=== PATIENT | female | born 1960 | race Caucasian/White ===

== ENCOUNTER → 2017-04-01 | Outpatient (CLI) | payer BC ==
[~2017-04-01] MED LIST: CARAFATE 1GM1 G PO; CIPRO 500MG TA500 MG PO; FOLIC ACID 11 MG/TA1 PO; METHOTREXATE50/2 SQ; MULTIPLE VITAMI1 CAP PO; NORCO 325 MG-51 TAB PO; PHENERGAN 25 TA25 MG PO; PREDNISONE 5MG5 MG PO; PROMETHAZINE12.5 M5 PO; PROTONIX 40MG T40 MG PO; TRIAMCINOLONE0.11 TP
== END ==
LOC: MC.RAD 10:31
DX: Z12.31 Encounter for screening mammogram for malignant neoplasm of breast (principal); N64.89 Other specified disorders of breast

== ENCOUNTER 2017-04-04 11:00 | Outpatient (RCR) | payer BC ==
[2017-04-03] VITALS (14 sets, daily range): BP systolic 106–118; BP diastolic 42–69; PULSE 69–85; TEMP 97.5–98.2
[2017-04-04] VITALS (14 sets, daily range): BP systolic 114–139; BP diastolic 48–92; PULSE 66–95; TEMP 97.8–98.2
[~2017-04-04] VITALS: Ht 157.5 cm; Wt 59.0 kg
== END 2017-04-04 17:11 ==
LOC: EUO 11:00
DX: M33.90 Dermatopolymyositis, unspecified, organ involvement unspecified (principal); Z79.899 Other long term (current) drug therapy
CPT/HCPCS: J1459

== ENCOUNTER 2017-05-30 09:30 | Outpatient (RCR) | payer BC ==
[2017-05-01] VITALS (13 sets, daily range): BP systolic 100–133; BP diastolic 50–72; PULSE 81–99; TEMP 97.5–98.5
[2017-05-02] VITALS (14 sets, daily range): BP systolic 98–128; BP diastolic 48–93; PULSE 84–108; TEMP 98.3–99.5
[2017-05-29] VITALS (14 sets, daily range): BP systolic 102–131; BP diastolic 46–94; PULSE 86–100; TEMP 98–98.3
[2017-05-30] VITALS (11 sets, daily range): BP systolic 105–127; BP diastolic 49–83; PULSE 84–99; TEMP 97.8–98.5
[~2017-05-30] VITALS: Ht 157.5 cm; Wt 67.7 kg
== END 2017-05-30 15:28 | disposition home or self-care (01) ==
LOC: EUO 09:30
DX: M33.90 Dermatopolymyositis, unspecified, organ involvement unspecified (principal); Z79.899 Other long term (current) drug therapy
CPT/HCPCS: J1459; J1569

== ENCOUNTER → 2017-07-30 | Outpatient (CLI) | payer BC | LOC: COL.PUL 12:43 | DX: M33.90 Dermatopolymyositis, unspecified, organ involvement unspecified (principal); R06.00 Dyspnea, unspecified; Z87.891 Personal history of nicotine dependence ==

== ENCOUNTER 2018-04-21 08:59 | Day surgery (SDC) | payer BC ==
[~2018-04-21] VITALS: Ht 157.5 cm; Wt 65.5 kg
[2018-04-21 10:08] VITALS: BP 146/60; PULSE 84; TEMP 97.6
[2018-04-21] MEDS ORDERED: PREDNISONE 5MG5 MG PO (10:20)
[2018-04-21] MEDS ORDERED: IMURAN 50MG TAB50 MG PO (10:21)
[2018-04-21] MEDS ORDERED: PRIL40 PO (10:22)
[2018-04-21] MEDS ORDERED: SMZ-TMP DS TAB 800 PO (10:22)
[2018-04-21] MEDS ORDERED: RITUXAN 10100 MG/10 IV (10:23)
[2018-04-21] MEDS ORDERED: PROLIA60 MG/ML SQ (10:24)
[2018-04-21] MEDS ORDERED: ASPIRIN 81M81 MG/TA2 PO (10:24)
[2018-04-21] MEDS ORDERED: BENADRYL25 M2 PO (10:25)
[2018-04-21] MEDS ORDERED: MELAT3MGTAB PO (10:26)
[2018-04-21] MEDS ORDERED: ELOCON0.1% TP (10:26)
[2018-04-21] MEDS ORDERED: CALCIPOTRIENE 0.005% TP (10:27)
[2018-04-21] MEDS ORDERED: NATURAL IRON65 MG PO (10:27)
[2018-04-21] MEDS ORDERED: VITAMIN C500 MG PO (10:28)
[2018-04-21] MEDS ORDERED: MASON NATURAL2000 IU PO (10:29)
[2018-04-21] MEDS ORDERED: PAMELOR 25MG25 MG PO (11:15)
[2018-04-21 11:20] VITALS: BP 122/53; PULSE 85; TEMP 97.7
[2018-04-21 11:35] VITALS: BP 113/50; PULSE 83
[2018-04-21 11:50] VITALS: BP 111/72; PULSE 74
== END 2018-04-21 12:10 | disposition home or self-care (01) ==
LOC: SDCO 08:59
DX: Z12.11 Encounter for screening for malignant neoplasm of colon (principal); Z86.010 Personal history of colon polyps; K64.0 First degree hemorrhoids; K29.30 Chronic superficial gastritis without bleeding; K44.9 Diaphragmatic hernia without obstruction or gangrene; K90.0 Celiac disease; Z98.890 Other specified postprocedural states; D64.9 Anemia, unspecified; Z87.891 Personal history of nicotine dependence; Z79.82 Long term (current) use of aspirin; Z79.899 Other long term (current) drug therapy
CPT/HCPCS: J1644; J2250; J2405; J3010; J7030

== ENCOUNTER → 2018-06-10 | Outpatient (CLI) | payer BC ==
[~2018-06-10] MED LIST changes: +ASPIRIN 81M81 MG/TA2 PO; +BENADRYL25 M2 PO; +CALCIPOTRIENE 0.005% TP; +ELOCON0.1% TP; +IMURAN 50MG TAB50 MG PO; +MASON NATURAL2000 IU PO; +MELAT3MGTAB PO; +NATURAL IRON65 MG PO; +PAMELOR 25MG25 MG PO; +PRIL40 PO; +PROLIA60 MG/ML SQ; +RITUXAN 10100 MG/10 IV; +SMZ-TMP DS TAB 800 PO; +VITAMIN C500 MG PO
== END ==
LOC: COL.LAB 10:06
DX: Z96.641 Presence of right artificial hip joint (principal)

== ENCOUNTER 2024-03-30 16:06 | Observation (INO) | payer MEDICARE, BC ==
[~2024-03-30] VITALS: Ht 157.5 cm; Wt 58.6 kg
[2024-03-30] VITALS (210 sets, daily range): BP systolic 151–168; BP diastolic 84–99; PULSE 79–105; TEMP 97.8–98; O2SAT 85–100
[~2024-03-30 16:06] MED LIST changes: -MELAT3MGTAB PO; +MELATONIN5 M1 SL
[2024-03-30] MEDS ORDERED: Ondansetron 4 MG/2 ML VIAL IV PRN (17:45)
[2024-03-30] MEDS ORDERED: Polyethylene Glycol 3350 17 GM PDS PO PRN (17:45)
[2024-03-30] MEDS ORDERED: Docusate Sodium 100 MG CAP PO PRN (17:45)
[2024-03-30] MEDS ORDERED: Acetaminophen 325 MG TAB PO PRN (17:45)
[2024-03-30] MEDS ORDERED: Nitroglycerin 0.1 MG/HR DAILY PATCH TD SCH (17:47)
--- NOTE | 2024-03-30 17:50 | NUR ---
PT ARRIVED VIA A STRETCHER AWAKE, ALERT AND ORIENTED. SHE AMBULATED TO THE TOILET BEFORE SITTING ON THE BED. SHE IS ON ROOM AIR. SHE HAS HER PHONE AND SMALL NOTEBOOK WITH HER. HER DAUGHTER IS AT THE BEDSIDE. SHE DOES NOT COMPLAIN OF CHEST PAIN AT THIS TIME. SHE HAS A SHIRT, BRA, PANTS, UNDERWEAR AND SHOES.
[2024-03-30] MEDS ORDERED: hydrALAZINE 20 MG/ML 1 ML VIAL IV PRN (18:00)
[2024-03-30] MEDS ORDERED: Furosemide 40 MG/4 ML VIAL IV SCH (18:00)
[2024-03-30] MEDS ORDERED: ARAVA 20MG TABL20 MG PO (18:11)
[2024-03-30] MEDS ORDERED: RINVOQ ER15 MG PO (18:12)
[2024-03-30] MEDS ORDERED: CALCIUM 600-D 61 TAB PO (18:14)
[2024-03-30] MEDS ORDERED: MAGNESIUM500 MG PO (18:16)
[2024-03-30] MEDS ORDERED: ONE-A-DAY ESSE1 EACH PO (18:22)
[2024-03-30] MEDS ORDERED: ZITHROMAX 250M250 MG PO ×2 (18:36→18:39)
[2024-03-30] MEDS ORDERED: GRISEOFULV125 MG/5 M PO (18:41)
[2024-03-30] MEDS ORDERED: [UNRECOGNIZED DRUG - OTHER] PO (18:42)
--- NOTE | 2024-03-30 19:00 | NUR ---
PT RESTING IN BED UPON ENTERING, DAUGHTER AT BEDSIDE. PT DENIES PAIN OR NEEDS AT THIS TIME. BED IN LOWEST POSITION, CALL LIGHT IN REACH
--- NOTE | 2024-03-30 19:52 | NUR ---
PT RESTING IN BED, DAUGHTER AT BEDSIDE. VITALS WNL. LEFT CHEST PORT ACCESSED, FLUSHES WITH BLOOD RETURN. PT DENIES PAIN OR DISCOMFORT. NITRO PATCH TO RIGHT UPPER CHEST. PT AND FAMILY UPDATED ON PLAN OF CARE. PT AMBULATING TO BATHROOM WITH STANDBY ASSIST, GAIT STEADY. PT DENIES NEEDS. BED IN LOWEST POSITION, CALL LIGHT IN REACH.
[2024-03-30] MEDS ORDERED: Melatonin 3 MG TAB PO SCH (21:00)
[2024-03-30] MEDS ORDERED: Famotidine 20 MG TAB PO SCH (21:00)
[2024-03-30 22:12] LABS: COLLECTION METHOD CLEAN CATCH
[2024-03-30 22:20] LABS: PH 6.5 (5.0-8.5); URINE APPEARANCE CLEAR (CLEAR/HAZY); URINE BLOOD TRACE (NEGATIVE); URINE COLOR YELLOW (YELLOW); URINE GLUCOSE NEGATIVE (NEGATIVE); URINE KETONE NEGATIVE (NEGATIVE); URINE NITRATE NEGATIVE (NEGATIVE); URINE PROTEIN(semi-quant) NEGATIVE (NEGATIVE); URINE UROBILINOGEN 0.2 E.U/dL (0.2-1.0)
--- NOTE | 2024-03-30 22:37 | NUR ---
PT REPORTS NAUSEA, PRN ZOFRAN GIVEN. SHORTLY AFTER PT REPORTS HEADACHE, PRN TYLENOL GIVEN
[2024-03-31] VITALS (556 sets, daily range): BP systolic 112–158; BP diastolic 76–96; PULSE 81–121; TEMP 97.7–98.1; O2SAT 84–100
--- NOTE | 2024-03-31 00:46 | NUR ---
PT SLEEPING AND O2 SATS DROPPING TO 80% ON ROOM AIR. PT REPORTS HAVING SLEEP APNEA BUT UNABLE TO TOLERATE CPAP OR OXYMASK. WHEN SLEEPING PT BREATHES WITH MOUTH OPEN, NASAL CANNULA WOULDNT BE APPROPRIATE FOR PT AT THIS TIME. PT DENIES NEEDS.
[2024-03-31 05:30] LABS: BASO # 0.1 K/mm3 (0.0-0.2); BASO % 1.1 % (0.0-2.0); EOS # 0.2 K/mm3 (0.0-0.7); EOS % 3.4 % (0.0-4.0); GRAN # 2.9 K/mm3 (1.4-6.5); GRAN % 62.6 % (42.2-75.2); HEMOGLOBIN 11.1 g/dl (12.5-16.0); LYMPH % 21.3 % (20.0-51.0); MEAN CELL VOLUME 86 fl (80.0-100.0); MEAN CORPUSCULAR HEMOGLOBIN 29 pg (27-31); MEAN CORPUSCULAR HGB CONC 33 g/dl (33.0-37.0); MEAN PLATELET VOLUME 7.8 fl (7.4-10.4); MONO # 0.5 K/mm3 (0.1-0.6); MONO % 11.4 % (1.7-9.3); PLATELET COUNT 376 K/mm3 (130-400); RED BLOOD COUNT 3.89 M/mm3 (4.10-5.30); REDCELL DISTRIBUTION WIDTH-CV 16.6 % (11.5-14.5)
[2024-03-31 05:36] LABS: HEMATOCRIT 33.5 % (37.0-47.0)
[2024-03-31 05:48] LABS: CALCIUM 9.7 mg/dL (8.4-10.2); CREATININE, serum 0.59 mg/dL (0.57-1.11); POTASSIUM 3.8 mEq/L (3.5-4.5)
[2024-03-31 05:49] LABS: CHOLESTEROL RISK RATIO 4.4
[2024-03-31 06:15] LABS: THYROID STIMULATING HORMONE 2.568 uIU/mL (0.350-4.940)
[2024-03-31] MEDS ORDERED: Omeprazole 40 MG **** subs to Pantoprazole 40 MG PO SCH (07:00)
--- NOTE | 2024-03-31 07:00 | NUR ---
Report received from LYNN Rosario. Reveiwed overnight events and labs. Pt sitting up in chair. Blood pressure is stable. Pt denies any needs at this time. Call light within reach. Will continue with POC.
[2024-03-31] MEDS ORDERED: Influenza Virus Vaccine, Hi-Dose Triv '24-25 (65 YR+) 0.5 ML SYRINGE IM SCH (09:00)
[2024-03-31] MEDS ORDERED: Azithromycin 250 MG TAB PO SCH (09:00)
[2024-03-31] MEDS ORDERED: ZOFRAN 4MG T4 MG/TAB PO (09:10)
--- NOTE | 2024-03-31 09:37 | NUR ---
radio survey worker met with pt to discuss discharge planning. She reports to live alone in [place]. She states her , Xu and her daughter, Diana [phone] is her contact/DPOA-HC. RICK verified this on file. Pt reports her PCP is SHAVONNE Madsen and she obtains medications from [facility] with no difficulties. She reports to have Medicare A/B and BCBS insurance. Pt is independent with ADLS and uses no DME. She has no concerns for SW and reports her daughter will be faxing her other Advanced Directives. Discharge Plan: home
[2024-03-31] MEDS ORDERED: ZYRTEC 10MG10 MG PO (10:09)
[2024-03-31] MEDS ORDERED: TYLENOL 500MG500 MG PO (10:10)
[2024-03-31] MEDS ORDERED: OCTAGAM 10%100 MG/ML (10:11)
--- NOTE | 2024-03-31 11:49 | NUR ---
Pt left floor at 1135 for Lexiscan.
[2024-03-31] MEDS ORDERED: Regadenoson 0.08 MG/ML 5 ML SYRINGE IV SCH (12:10)
--- NOTE | 2024-03-31 12:56 | NUR ---
Pt returned to room from [facility] at 1242. Pt c/o nausea and leg pain. Adminstered PRN zofran and tylenol for comfort. Notified US that pt had returned to room.
[2024-03-31] MEDS ORDERED: TOPROL XL 50MG50 MG PO (14:54)
[2024-03-31] MEDS ORDERED: ASPIRIN E.C. 8181 MG PO (14:55)
--- NOTE | 2024-03-31 16:13 | NUR ---
color worker met with pt with RN, INGA Scott to complete CHRISTINA form from Medicare due to pt being downgraded to OBS. Pt signed and was provided copy. Original in chart. Dsicharge Plan: home
--- NOTE | 2024-03-31 16:57 | NUR ---
Discharge instructions provided. Reviewed new medicaitons. Reviewed follow up appoinments. Pt and daugter verbalized understanding. Port-a-cath discontinued. Pt escorted out via wheelchair.
[2024-03-31] MEDS ORDERED: Melatonin 3 MG TAB PO SCH (21:00)
== END 2024-03-31 16:43 | disposition home or self-care (01) ==
LOC: ICU 16:06
PROVIDERS: ADMIT Internal Medicine
DX: I16.0 Hypertensive urgency (principal); I21.4 Non-ST elevation (NSTEMI) myocardial infarction; I27.20 Pulmonary hypertension, unspecified; J84.9 Interstitial pulmonary disease, unspecified; M33.90 Dermatopolymyositis, unspecified, organ involvement unspecified; K90.0 Celiac disease; G89.29 Other chronic pain; M54.9 Dorsalgia, unspecified; K21.9 Gastro-esophageal reflux disease without esophagitis; D53.9 Nutritional anemia, unspecified; M06.9 Rheumatoid arthritis, unspecified; Z79.899 Other long term (current) drug therapy; Z87.891 Personal history of nicotine dependence
CPT/HCPCS: A9500-JZ; G0378; G0379; J1650; J1940; J2405; J2785